=== PATIENT | female | born 1940 | race Caucasian/White ===

== ENCOUNTER → 2016-06-04 | Outpatient (CLI) | payer MEDICARE, OTHER ==
[~2016-06-04] MED LIST: ALPR-475 PO; CIPR250T27 PO; CLOP75TA22 PO; DEXL30CA2 PO; DIGO125T PO; HYDR10TA4 PO; LORA-446 PO; OMEP-110 PO; PHEN-418 PO; TEMA15CA6 PO; THYR90TA PO; TRAZ50TA18 PO
== END | disposition home or self-care (01) ==
LOC: CFH 10:44
PROVIDERS: ATTEND Internal Medicine
DX: J44.9 Chronic obstructive pulmonary disease, unspecified (principal); R91.8 Other nonspecific abnormal finding of lung field
CPT/HCPCS: 71250

== ENCOUNTER 2016-06-13 12:20 | Inpatient (IN) | payer MEDICARE, OTHER ==
[2016-06-12 10:51] VITALS: BP 146/66
[~2016-06-13] VITALS: Ht 147.3 cm; Wt 45.5 kg
[~2016-06-13 12:20] MED LIST changes: +ALBU90AE PO; +CALCIUM PO; +ESTRADIOL PO; +PROZAC PO; +RESTORIL PO
[2016-06-13] MEDS ORDERED: FENTANYL PF 100 MCG/2ML ONE ×3 (13:35→16:55)
[2016-06-13] MEDS ORDERED: NEOSTIGMINE 1 MG/ML, 10ML ONE (13:44)
[2016-06-13] MEDS ORDERED: ONDANSETRON 2MG/ML, 2ML ONE (13:44)
[2016-06-13] MEDS ORDERED: GLYCOPYRROLATE 0.2MG/1ML ONE (13:44)
[2016-06-13] MEDS ORDERED: ROCURONIUM 10 MG/ML ONE ×2 (13:44)
[2016-06-13] MEDS ORDERED: METOPROLOL 1 MG/ML, 5ML ONE (13:44)
[2016-06-13] MEDS ORDERED: PROPOFOL 10 MG/ML, 20ML ONE ×2 (13:44)
[2016-06-13] MEDS ORDERED: METOPROLOL 1 MG/ML, 5ML IV PRN (14:30)
[2016-06-13] MEDS ORDERED: MEPERIDINE/PF 25MG/0.5ML IVPush PRN (14:30)
[2016-06-13] MEDS ORDERED: EPHEDRINE 50 MG/ML, 1ML IVPush PRN (14:30)
[2016-06-13] MEDS ORDERED: hydrALAzine 20 MG/ML, 1ML IV PRN (14:30)
[2016-06-13] MEDS ORDERED: LABETALOL 5MG/ML, 20ML IV PRN (14:30)
[2016-06-13] MEDS ORDERED: ALBUTEROL SULFATE 2.5 MG/3 ML NPPB PRN (14:30)
[2016-06-13] MEDS ORDERED: ONDANSETRON 2MG/ML, 2ML IVPush PRN (14:30)
[2016-06-13] MEDS ORDERED: LACTATED RINGERS 1,000 ML IV SCH (15:50)
[2016-06-13] MEDS: FENTANYL PF 100 MCG/2ML IV PRN ×4 (15:54→16:23)
[2016-06-13] MEDS ORDERED: BISACODYL 10 MG SUPP PR PRN (16:00)
[2016-06-13] MEDS ORDERED: POLYETHYLENE GLYCOL 17 GM PACKET PO PRN (16:00)
[2016-06-13] MEDS ORDERED: DOCUSATE 100 MG CAPSULE PO PRN (16:00)
[2016-06-13] MEDS ORDERED: LIDOCAINE 1%, 20ML ONE (16:40)
[2016-06-13] MEDS ORDERED: NALOXONE 1 MG/ML, 2ML ONE (16:55)
[2016-06-13] MEDS ORDERED: FLUMAZENIL 0.1 MG/1 ML, 5ML ONE (16:55)
[2016-06-13] MEDS ORDERED: MIDAZOLAM 1 MG/ML, 5ML ONE (16:55)
[2016-06-13] MEDS: OMEPRAZOLE 20 MG CAPSULE.DR PO SCH (17:00)
[2016-06-13] MEDS ORDERED: ENOXAPARIN 40 MG/0.4 ML SQ SCH (17:00)
[2016-06-13 17:51] VITALS: BP 86/54
[2016-06-13] MEDS: FENTANYL PF 100 MCG/2ML IVPush PRN (19:34)
[2016-06-13] MEDS ORDERED: ATORVASTATIN 40 MG TABLET PO SCH (21:00)
[2016-06-13 21:19] VITALS: BP 117/54
[2016-06-13] MEDS ORDERED: calcium PO (22:29)
[2016-06-13] MEDS ORDERED: PRED50TA PO (22:29)
[2016-06-13] MEDS ORDERED: MAGN2400 PO (22:29)
[2016-06-13] MEDS ORDERED: DOCU-30 PO (22:29)
[2016-06-13] MEDS ORDERED: GABA100C8 PO (22:29)
[2016-06-13] MEDS ORDERED: FLUT9.9S NS (22:29)
[2016-06-13] MEDS ORDERED: atarax PO (22:29)
[2016-06-13] MEDS ORDERED: LORA-446 PO (22:29)
[2016-06-13] MEDS ORDERED: MAGNESIUM HYDROXIDE 8%, 30ML UDC PO PRN (23:00)
[2016-06-13] MEDS ORDERED: TRAZODONE 100MG TABLET PO PRN (23:45)
[2016-06-13] MEDS: ALPRazolam 1MG TABLET PO SCH (23:56)
[2016-06-14] VITALS (7 sets, daily range): BP systolic 79–120; BP diastolic 43–64
[2016-06-14] MEDS: hydrOXyzine 10MG TABLET PO PRN ×2 (00:26→11:44)
[2016-06-14] MEDS: FENTANYL PF 100 MCG/2ML IVPush PRN ×4 (01:40→18:22)
[2016-06-14 05:50] LABS: BLOOD UREA NITROGEN 16 mg/dL (7-18)
[2016-06-14] MEDS: THYROID 30 MG TABLET PO SCH (05:50)
[2016-06-14] MEDS: FLUOXETINE 20 MG CAPSULE PO SCH (07:29)
[2016-06-14] MEDS: predniSONE 50MG TABLET PO SCH (07:29)
[2016-06-14] MEDS ORDERED: DIGOXIN 0.125 MG TABLET PO SCH (09:00)
[2016-06-14] MEDS: CALCIUM CARBONATE 500 MG TAB.CHEW PO SCH (09:27)
[2016-06-14] MEDS: FLUTICASONE NASAL SPRAY 16GM NAS SCH (09:27)
[2016-06-14] MEDS ORDERED: SODIUM CHLORIDE 0.9%, 500ML IVBOLUS ONE (14:00)
[2016-06-14] MEDS ORDERED: SODIUM CHLORIDE 0.9% 1,000 ML IV SCH (14:00)
[2016-06-14] MEDS: OMEPRAZOLE 20 MG CAPSULE.DR PO SCH (17:45)
[2016-06-14] MEDS ORDERED: ENOXAPARIN 30 MG/0.3 ML SQ SCH (18:00)
[2016-06-14] MEDS: ALPRazolam 1MG TABLET PO SCH (21:00)
[2016-06-14] MEDS: ENOXAPARIN 30 MG/0.3 ML SQ SCH (21:00)
[2016-06-15] VITALS (7 sets, daily range): BP systolic 87–117; BP diastolic 43–66
[2016-06-15] MEDS: THYROID 30 MG TABLET PO SCH (05:45)
[2016-06-15] MEDS: FLUTICASONE NASAL SPRAY 16GM NAS SCH (08:42)
[2016-06-15] MEDS: predniSONE 50MG TABLET PO SCH (08:42)
[2016-06-15] MEDS: CALCIUM CARBONATE 500 MG TAB.CHEW PO SCH (08:42)
[2016-06-15] MEDS: FLUOXETINE 20 MG CAPSULE PO SCH (08:42)
[2016-06-15] MEDS: FENTANYL PF 100 MCG/2ML IVPush PRN ×2 (08:43→21:25)
[2016-06-15] MEDS ORDERED: LORazepam 2 MG/ML, 1ML ONE (10:42)
[2016-06-15] MEDS ORDERED: LORazepam 2 MG/ML, 1ML IVPush ONE (11:00)
[2016-06-15] MEDS ORDERED: MIDAZOLAM 1 MG/ML, 5ML ONE (14:07)
[2016-06-15] MEDS ORDERED: FENTANYL PF 100 MCG/2ML ONE (14:08)
[2016-06-15] MEDS ORDERED: LIDOCAINE 2%, 20ML ONE (14:22)
[2016-06-15] MEDS: OMEPRAZOLE 20 MG CAPSULE.DR PO SCH (16:40)
[2016-06-15] MEDS: ENOXAPARIN 30 MG/0.3 ML SQ SCH (20:15)
[2016-06-15] MEDS: ALPRazolam 1MG TABLET PO SCH (21:00)
[2016-06-16 03:35] VITALS: BP 105/51
[2016-06-16] MEDS: THYROID 30 MG TABLET PO SCH (06:32)
[2016-06-16 06:49] VITALS: BP 112/50
[2016-06-16] MEDS: FLUTICASONE NASAL SPRAY 16GM NAS SCH (08:20)
[2016-06-16] MEDS: predniSONE 50MG TABLET PO SCH (08:20)
[2016-06-16] MEDS: FLUOXETINE 20 MG CAPSULE PO SCH (08:20)
[2016-06-16] MEDS: CALCIUM CARBONATE 500 MG TAB.CHEW PO SCH (08:20)
[2016-06-16] MEDS: ESTRADIOL 1 MG TABLET PO SCH (08:20)
[2016-06-16] MEDS: FENTANYL PF 100 MCG/2ML IVPush PRN ×3 (08:27→20:02)
[2016-06-16 14:24] VITALS: BP 96/48
[2016-06-16] MEDS: OMEPRAZOLE 20 MG CAPSULE.DR PO SCH (17:15)
[2016-06-16] MEDS: ENOXAPARIN 40 MG/0.4 ML SQ SCH (20:02)
[2016-06-16 20:04] VITALS: BP 110/49
[2016-06-16] MEDS: ALPRazolam 1MG TABLET PO SCH (21:00)
[2016-06-17 01:56] VITALS: BP 110/51
[2016-06-17] MEDS: THYROID 30 MG TABLET PO SCH (05:46)
[2016-06-17] MEDS: FENTANYL PF 100 MCG/2ML IVPush PRN ×2 (05:46→09:42)
[2016-06-17 06:34] VITALS: BP 127/59
[2016-06-17] MEDS: ESTRADIOL 1 MG TABLET PO SCH (09:35)
[2016-06-17] MEDS: FLUTICASONE NASAL SPRAY 16GM NAS SCH (09:36)
[2016-06-17] MEDS: FLUOXETINE 20 MG CAPSULE PO SCH (09:36)
[2016-06-17] MEDS: CALCIUM CARBONATE 500 MG TAB.CHEW PO SCH (09:42)
[2016-06-17 14:21] VITALS: BP 118/46
[2016-06-17] MEDS: OMEPRAZOLE 20 MG CAPSULE.DR PO SCH (17:42)
[2016-06-17] MEDS ORDERED: ACETAMINOPHEN 325 MG TABLET ONE (19:43)
[2016-06-17] MEDS: ALPRazolam 1MG TABLET PO SCH ×2 (19:46→21:00)
[2016-06-17] MEDS: ACETAMINOPHEN 325 MG TABLET PO PRN (19:46)
[2016-06-17] MEDS: ENOXAPARIN 40 MG/0.4 ML SQ SCH (19:47)
[2016-06-17 20:00] VITALS: BP 185/62
[2016-06-18 03:19] VITALS: BP 102/54
[2016-06-18] MEDS: THYROID 30 MG TABLET PO SCH (05:33)
[2016-06-18] MEDS: ACETAMINOPHEN 325 MG TABLET PO PRN (05:36)
[2016-06-18 07:56] VITALS: BP 123/58
[2016-06-18] MEDS: CALCIUM CARBONATE 500 MG TAB.CHEW PO SCH ×2 (08:21→21:30)
[2016-06-18] MEDS: ESTRADIOL 1 MG TABLET PO SCH (08:21)
[2016-06-18] MEDS: FLUTICASONE NASAL SPRAY 16GM NAS SCH (08:21)
[2016-06-18] MEDS: FLUOXETINE 20 MG CAPSULE PO SCH (08:21)
[2016-06-18] MEDS: GABAPENTIN 300 MG CAPSULE PO PRN (08:32)
[2016-06-18 13:00] VITALS: BP 114/56
[2016-06-18 14:35] VITALS: BP 112/47
[2016-06-18] MEDS: OMEPRAZOLE 20 MG CAPSULE.DR PO SCH (17:00)
[2016-06-18] MEDS ORDERED: FENTANYL PF 250 MCG/5ML ONE (17:24)
[2016-06-18] MEDS ORDERED: BUPIVACAINE/PF-EPI 0.25% 1:200K ONE (17:43)
[2016-06-18] MEDS ORDERED: ONDANSETRON 2MG/ML, 2ML ONE ×2 (18:00→18:59)
[2016-06-18] MEDS ORDERED: PROPOFOL 10 MG/ML, 20ML ONE (18:00)
[2016-06-18] MEDS ORDERED: ROCURONIUM 10 MG/ML ONE (18:00)
[2016-06-18] MEDS ORDERED: CEFAZOLIN 1,000 MG ONE (18:00)
[2016-06-18] MEDS ORDERED: ALBUTEROL/IPRATROPIUM 2.5MG/0.5MG, 3 ML NPPB PRN (19:00)
[2016-06-18] MEDS ORDERED: FENTANYL PF 100 MCG/2ML IV PRN (19:00)
[2016-06-18] MEDS ORDERED: hydrALAzine 20 MG/ML, 1ML IV PRN (19:00)
[2016-06-18] MEDS ORDERED: LABETALOL 5MG/ML, 20ML IV PRN (19:00)
[2016-06-18] MEDS ORDERED: ONDANSETRON 2MG/ML, 2ML IVPush PRN (19:00)
[2016-06-18] MEDS ORDERED: FENTANYL PF 100 MCG/2ML ONE (19:19)
[2016-06-18] MEDS: FENTANYL PF 100 MCG/2ML IVPush PRN (20:49)
[2016-06-18] MEDS: ALPRazolam 1MG TABLET PO SCH (21:00)
[2016-06-18] MEDS: ENOXAPARIN 40 MG/0.4 ML SQ SCH (21:54)
[2016-06-18 23:54] VITALS: BP 156/69
[2016-06-19] MEDS: ACETAMINOPHEN 325 MG TABLET PO PRN ×2 (00:11→08:38)
[2016-06-19] MEDS: FENTANYL PF 100 MCG/2ML IVPush PRN ×6 (00:55→17:58)
[2016-06-19 03:40] VITALS: BP 109/54
[2016-06-19] MEDS: THYROID 30 MG TABLET PO SCH (05:37)
[2016-06-19 07:06] VITALS: BP 116/52
[2016-06-19] MEDS: FLUOXETINE 20 MG CAPSULE PO SCH (08:38)
[2016-06-19] MEDS: FLUTICASONE NASAL SPRAY 16GM NAS SCH (08:38)
[2016-06-19] MEDS: ESTRADIOL 1 MG TABLET PO SCH (08:38)
[2016-06-19] MEDS: CALCIUM CARBONATE 500 MG TAB.CHEW PO SCH (08:41)
[2016-06-19] MEDS: GABAPENTIN 300 MG CAPSULE PO PRN ×2 (09:41→17:58)
[2016-06-19 12:35] VITALS: BP 90/48
[2016-06-19] MEDS: OMEPRAZOLE 20 MG CAPSULE.DR PO SCH (13:44)
[2016-06-19] MEDS: SIMETHICONE 80 MG CHEW TAB PO PRN ×2 (14:20→18:31)
[2016-06-19 18:28] VITALS: BP 88/54
[2016-06-19] MEDS: ENOXAPARIN 40 MG/0.4 ML SQ SCH (20:38)
[2016-06-19] MEDS: ALPRazolam 1MG TABLET PO SCH (20:38)
[2016-06-19 23:30] VITALS: BP 110/48
[2016-06-20 02:01] VITALS: BP 90/51
[2016-06-20] MEDS: FENTANYL PF 100 MCG/2ML IVPush PRN ×4 (05:23→20:37)
[2016-06-20] MEDS: THYROID 30 MG TABLET PO SCH (05:23)
[2016-06-20] MEDS: GABAPENTIN 300 MG CAPSULE PO PRN ×2 (05:23→22:08)
[2016-06-20 07:23] VITALS: BP 93/47
[2016-06-20] MEDS: FLUOXETINE 20 MG CAPSULE PO SCH (10:04)
[2016-06-20] MEDS: ESTRADIOL 1 MG TABLET PO SCH (10:04)
[2016-06-20] MEDS: CALCIUM CARBONATE 500 MG TAB.CHEW PO SCH (10:04)
[2016-06-20] MEDS: FLUTICASONE NASAL SPRAY 16GM NAS SCH (10:05)
[2016-06-20] MEDS: SIMETHICONE 80 MG CHEW TAB PO PRN (10:21)
[2016-06-20 13:27] VITALS: BP 85/48
[2016-06-20] MEDS: OMEPRAZOLE 20 MG CAPSULE.DR PO SCH (15:55)
[2016-06-20] MEDS: ACETAMINOPHEN 325 MG TABLET PO PRN (15:56)
[2016-06-20 18:51] VITALS: BP 129/61
[2016-06-20 20:35] VITALS: BP 114/49
[2016-06-20] MEDS: ENOXAPARIN 40 MG/0.4 ML SQ SCH (20:37)
[2016-06-20] MEDS: ALPRazolam 1MG TABLET PO SCH (22:07)
[2016-06-21 01:34] VITALS: BP 97/36
[2016-06-21 03:45] VITALS: BP 95/45
[2016-06-21 05:43] VITALS: BP 112/49
[2016-06-21] MEDS: FENTANYL PF 100 MCG/2ML IVPush PRN (05:49)
[2016-06-21] MEDS: ACETAMINOPHEN 325 MG TABLET PO PRN (05:50)
[2016-06-21] MEDS: THYROID 30 MG TABLET PO SCH (05:50)
[2016-06-21] MEDS ORDERED: ESTR1TAB15 PO (07:48)
[2016-06-21] MEDS ORDERED: FLUT16SP NAS (07:48)
[2016-06-21] MEDS ORDERED: ALPR1TAB6 PO (07:48)
[2016-06-21] MEDS ORDERED: FLUO20CA8 PO (07:48)
[2016-06-21] MEDS ORDERED: GABA300C10 PO (07:48)
[2016-06-21] MEDS ORDERED: THYR30TA PO (07:48)
[2016-06-21 08:33] VITALS: BP 74/33
[2016-06-21] MEDS: ESTRADIOL 1 MG TABLET PO SCH (08:42)
[2016-06-21] MEDS: SIMETHICONE 80 MG CHEW TAB PO PRN (08:42)
[2016-06-21] MEDS: FLUTICASONE NASAL SPRAY 16GM NAS SCH (08:43)
[2016-06-21] MEDS: CALCIUM CARBONATE 500 MG TAB.CHEW PO SCH (08:43)
[2016-06-21] MEDS ORDERED: FENT-58 TD (09:30)
[2016-06-21] MEDS ORDERED: FENTANYL 12 MCG PATCH TD SCH ×2 (09:30→12:00)
[2016-06-21] MEDS ORDERED: FENT1PAT75 TD (09:33)
[2016-06-21] MEDS ORDERED: FENTANYL 25 MCG PATCH TD SCH (11:30)
[2016-06-21] MEDS ORDERED: FENTANYL REMOVE PATCH NOTE XX SCH (11:30)
[2016-06-21 13:20] VITALS: BP 80/44
[2016-06-24] MEDS ORDERED: FENTANYL 12 MCG PATCH TD SCH (11:30)
[2016-06-24] MEDS ORDERED: FENTANYL REMOVE PATCH NOTE XX SCH (11:30)
== END 2016-06-21 13:35 | disposition home or self-care (01) | DRG 166 ==
LOC: OUT 12:20 → MERGE 13:30 → ORIP 15:50 → 4NOR 17:22
PROVIDERS: ADMIT Internal Medicine; ATTEND Internal Medicine
PROC: 0W9930Z Drainage of Right Pleural Cavity with Drainage Device, Percutaneous Approach (ICD-10-PCS; 2016-06-13)
PROC: 0B9D8ZX Drainage of Right Middle Lung Lobe, Via Natural or Artificial Opening Endoscopic, Diagnostic (ICD-10-PCS; 2016-06-13)
PROC: 0BBD8ZZ Excision of Right Middle Lung Lobe, Via Natural or Artificial Opening Endoscopic (ICD-10-PCS; 2016-06-13)
PROC: 0W28X0Z Change Drainage Device in Chest Wall, External Approach (ICD-10-PCS; 2016-06-15)
PROC: 0BBD4ZX Excision of Right Middle Lung Lobe, Percutaneous Endoscopic Approach, Diagnostic (ICD-10-PCS; principal; 2016-06-18 16:00)
DX: J95.811 Postprocedural pneumothorax (principal); J86.0 Pyothorax with fistula; J96.90 Respiratory failure, unspecified, unspecified whether with hypoxia or hypercapnia; C34.2 Malignant neoplasm of middle lobe, bronchus or lung; R91.8 Other nonspecific abnormal finding of lung field; E03.9 Hypothyroidism, unspecified; G47.33 Obstructive sleep apnea (adult) (pediatric); E78.5 Hyperlipidemia, unspecified; I10 Essential (primary) hypertension; I25.10 Atherosclerotic heart disease of native coronary artery without angina pectoris; I71.4 Abdominal aortic aneurysm, without rupture; R91.1 Solitary pulmonary nodule; I73.9 Peripheral vascular disease, unspecified; Z82.49 Family history of ischemic heart disease and other diseases of the circulatory system; Z86.79 Personal history of other diseases of the circulatory system; Z87.891 Personal history of nicotine dependence; Z88.9 Allergy status to unspecified drugs, medicaments and biological substances; Z99.81 Dependence on supplemental oxygen; I65.29 Occlusion and stenosis of unspecified carotid artery; I71.9 Aortic aneurysm of unspecified site, without rupture; J44.9 Chronic obstructive pulmonary disease, unspecified
CPT/HCPCS: 31624; 31628; 32557; 36415; 71010; 75984; 76001; 80048; 81003; 85025; 88172; 88173; 88177; 88305; 88309; 88341; 88342; 93005; 94640; 99156; 99157; C1729; J0690; J1650; J2250; J2405; J2704; J2710; J3010; J3490; J7613; C1769; G0461; J2060; J2310; J7030; J7040; J7120; J7512

== ENCOUNTER → 2016-06-24 | Outpatient (CLI) | payer MEDICARE, OTHER ==
[~2016-06-24] MED LIST changes: +ALPR1TAB6 PO; +DEXL60CA PO; +DOCU-30 PO; +ESTR1TAB15 PO; +FENT-58 TD; +FENT1PAT75 TD; +FLUO20CA8 PO; +FLUT16SP NAS; +FLUT9.9S NS; +GABA100C8 PO; +GABA300C10 PO; +HYDR25CA PO; +MAGN2400 PO; +PRED50TA PO; +THYR30TA PO; +atarax PO; +calcium PO
== END | disposition home or self-care (01) ==
LOC: RAD 14:30
PROVIDERS: ATTEND Internal Medicine
DX: R05 Cough (principal); R07.9 Chest pain, unspecified; R91.8 Other nonspecific abnormal finding of lung field; T79.7XXA Traumatic subcutaneous emphysema, initial encounter
CPT/HCPCS: 71020

== ENCOUNTER 2016-06-26 10:30 | Inpatient (IN) | payer MEDICARE, OTHER ==
[~2016-06-26] VITALS: Ht 147.3 cm; Wt 36.8 kg
[~2016-06-26 10:30] MED LIST changes: -DEXL60CA PO; -HYDR25CA PO
[2016-06-26] MEDS ORDERED: SODIUM CHLORIDE 0.9% 1,000 ML IV ONE (10:46)
[2016-06-26] MEDS ORDERED: DIGO125T PO (10:51)
[2016-06-26] MEDS ORDERED: HYDR25CA PO (10:51)
[2016-06-26] MEDS ORDERED: DEXL60CA PO (10:51)
[2016-06-26] MEDS ORDERED: CEFTRIAXONE PMX 1GM/50ML 50 ML IVPB ONE (11:00)
[2016-06-26] MEDS ORDERED: SODIUM CHLORIDE FLUSH 10ML SYR IVF ONE (11:00)
[2016-06-26] MEDS ORDERED: AZITHROMYCIN 500 MG in SODIUM CHLORIDE 0.9% 250 ML IVPB ONE (11:00)
[2016-06-26] MEDS ORDERED: CEFTRIAXONE PMX 1GM/50ML 50 ML ONE (11:05)
[2016-06-26 11:47] LABS: ABG COLLECTION SITE RIGHT BRACHIAL
[2016-06-26 12:04] LABS: ASPARTATE AMINO TRANSFERASE 20 U/L (15-37); BLOOD UREA NITROGEN 13 mg/dL (7-18)
[2016-06-26 12:09] LABS: IS PT STATUS REG ER OR PRE ER? YES
[2016-06-26] MEDS ORDERED: SODIUM CHLORIDE FLUSH 10ML SYR IVF PRN (13:00)
[2016-06-26] MEDS ORDERED: DOCUSATE 100 MG CAPSULE PO PRN (14:00)
[2016-06-26] MEDS ORDERED: POLYETHYLENE GLYCOL 17 GM PACKET PO PRN (14:00)
[2016-06-26] MEDS ORDERED: OXYcodone IR 5MG TABLET PO PRN (14:00)
[2016-06-26] MEDS ORDERED: SODIUM CHLORIDE 0.9% 1,000ML IVBOLUS ONE (14:00)
[2016-06-26] MEDS ORDERED: ACETAMINOPHEN 325 MG TABLET PO PRN (14:00)
[2016-06-26] MEDS ORDERED: VANCOMYCIN PER PHARMACY MC PRN (14:30)
[2016-06-26] MEDS ORDERED: FUROSEMIDE 20 MG/2 ML IV ONE (14:30)
[2016-06-26] MEDS ORDERED: VANCOMYCIN PMX 1GM/200ML 200 ML IV ONE (14:30)
[2016-06-26 14:49] VITALS: BP 104/68
[2016-06-26] MEDS ORDERED: PHARMACOKINETIC CONSULTATION MC ONE (15:30)
[2016-06-26] MEDS ORDERED: PHARMACOKINETIC MONITORING MC PRN (15:30)
[2016-06-26] MEDS ORDERED: VANCOMYCIN 750 MG in SODIUM CHLORIDE 0.9% 100 ML IV ONE (15:30)
[2016-06-26] MEDS ORDERED: VANCOMYCIN 750 MG in SODIUM CHLORIDE 0.9% 100 ML IV SCH (15:30)
[2016-06-26] MEDS: GUAIFENESIN 200 MG TABLET PO SCH (16:43)
[2016-06-26] MEDS: PIPERACILLIN/TAZO 3.375 GM in SODIUM CHLORIDE 0.9% 50 ML IV SCH ×2 (16:43→22:49)
[2016-06-26] MEDS: IBUPROFEN 200 MG TABLET PO PRN ×2 (16:43→22:50)
[2016-06-26] MEDS: HEPARIN 5,000 UNITS/ML, 1ML SQ SCH ×2 (16:45→22:49)
[2016-06-26] MEDS: FLUTICASONE/VILANTEROL 200-25MCG/INH INH SCH (16:45)
[2016-06-26] MEDS: VANCOMYCIN 750 MG in SODIUM CHLORIDE 0.9% 100 ML IV SCH (17:35)
[2016-06-26 19:25] VITALS: BP 93/53
[2016-06-26] MEDS: IPRATROPIUM 0.5 MG/2.5 ML INHA NPPB SCH (19:33)
[2016-06-26 19:37] VITALS: BP_SYST 141; BP_SYST 93; BP_DIAS 53; BP_DIAS 76
[2016-06-26] MEDS: ALPRazolam 1MG TABLET PO SCH (20:32)
[2016-06-26] MEDS: CALCIUM CARBONATE 500 MG TABLET PO SCH (20:33)
[2016-06-26] MEDS: MAGNESIUM OXIDE 400 MG TABLET PO SCH (20:33)
[2016-06-27 02:12] VITALS: BP 118/65
[2016-06-27] MEDS: GUAIFENESIN 200 MG TABLET PO SCH ×2 (04:13→17:09)
[2016-06-27] MEDS: CALCIUM CARBONATE 500 MG TAB.CHEW PO PRN (04:52)
[2016-06-27] MEDS: PIPERACILLIN/TAZO 3.375 GM in SODIUM CHLORIDE 0.9% 50 ML IV SCH ×3 (04:52→17:08)
[2016-06-27] MEDS: THYROID 30 MG TABLET PO SCH (05:49)
[2016-06-27] MEDS: HEPARIN 5,000 UNITS/ML, 1ML SQ SCH ×3 (05:50→23:19)
[2016-06-27 06:08] LABS: ASPARTATE AMINO TRANSFERASE 27 U/L (15-37); BLOOD UREA NITROGEN 12 mg/dL (7-18)
[2016-06-27] MEDS: ONDANSETRON 2MG/ML, 2ML IVPush PRN ×2 (06:21→19:31)
[2016-06-27] MEDS: IPRATROPIUM 0.5 MG/2.5 ML INHA NPPB SCH ×4 (06:56→19:29)
[2016-06-27 07:05] VITALS: BP 128/78
[2016-06-27] MEDS: IBUPROFEN 200 MG TABLET PO PRN ×2 (08:09→13:29)
[2016-06-27] MEDS: FLUTICASONE/VILANTEROL 200-25MCG/INH INH SCH (08:10)
[2016-06-27] MEDS: MAGNESIUM OXIDE 400 MG TABLET PO SCH (08:10)
[2016-06-27] MEDS: FLUOXETINE 20 MG CAPSULE PO SCH (08:10)
[2016-06-27] MEDS: DIGOXIN 0.125 MG TABLET PO SCH (08:10)
[2016-06-27] MEDS: CALCIUM CARBONATE 500 MG TABLET PO SCH (08:10)
[2016-06-27] MEDS: FLUTICASONE NASAL SPRAY 16GM NAS SCH (08:12)
[2016-06-27] MEDS: SENNA/DOCUSATE TABLET PO SCH (08:14)
[2016-06-27] MEDS ORDERED: DEXLANSOPRAZOLE 60 MG PO SCH (09:00)
[2016-06-27 12:55] VITALS: BP 114/55
[2016-06-27] MEDS: VANCOMYCIN 750 MG in SODIUM CHLORIDE 0.9% 100 ML IV SCH (15:39)
[2016-06-27] MEDS: methylPREDNISolone SOD SUCC 125 MG/2 ML IVPush SCH ×2 (17:34→23:19)
[2016-06-27 19:07] VITALS: BP 147/64
[2016-06-27] MEDS: ALPRazolam 1MG TABLET PO SCH (21:00)
[2016-06-27] MEDS: LACTOBACILLUS CHEW TABLET PO SCH (21:00)
[2016-06-27] MEDS ORDERED: LORazepam 2 MG/ML, 1ML IVPush ONE (22:30)
[2016-06-27] MEDS: PIPERACILLIN/TAZO 3.375 GM in SODIUM CHLORIDE 0.9% 100 ML IV SCH (23:20)
[2016-06-28 04:13] VITALS: BP 115/42
[2016-06-28] MEDS: ONDANSETRON 2MG/ML, 2ML IVPush PRN (04:14)
[2016-06-28] MEDS: methylPREDNISolone SOD SUCC 125 MG/2 ML IVPush SCH ×4 (05:12→20:18)
[2016-06-28] MEDS: PIPERACILLIN/TAZO 3.375 GM in SODIUM CHLORIDE 0.9% 100 ML IV SCH ×2 (05:12→11:12)
[2016-06-28] MEDS: GUAIFENESIN 200 MG TABLET PO SCH ×2 (05:13→17:30)
[2016-06-28] MEDS: HEPARIN 5,000 UNITS/ML, 1ML SQ SCH ×3 (05:13→20:18)
[2016-06-28] MEDS: THYROID 30 MG TABLET PO SCH (05:14)
[2016-06-28 05:55] LABS: BLOOD UREA NITROGEN 14 mg/dL (7-18)
[2016-06-28 06:35] VITALS: BP 91/56
[2016-06-28] MEDS: IPRATROPIUM 0.5 MG/2.5 ML INHA NPPB SCH ×4 (06:45→19:47)
[2016-06-28] MEDS: OMEPRAZOLE 20 MG CAPSULE.DR PO SCH (08:04)
[2016-06-28] MEDS: FLUTICASONE/VILANTEROL 200-25MCG/INH INH SCH (08:05)
[2016-06-28] MEDS: CALCIUM CARBONATE 500 MG TABLET PO SCH (08:05)
[2016-06-28] MEDS: MAGNESIUM OXIDE 400 MG TABLET PO SCH (08:05)
[2016-06-28] MEDS: FLUOXETINE 20 MG CAPSULE PO SCH (08:05)
[2016-06-28] MEDS: DIGOXIN 0.125 MG TABLET PO SCH (08:05)
[2016-06-28] MEDS: LACTOBACILLUS CHEW TABLET PO SCH ×3 (08:05→20:17)
[2016-06-28] MEDS: SENNA/DOCUSATE TABLET PO SCH (08:06)
[2016-06-28] MEDS: FLUTICASONE NASAL SPRAY 16GM NAS SCH (08:06)
[2016-06-28] MEDS ORDERED: LORazepam 2 MG/ML, 1ML IVPush PRN (10:30)
[2016-06-28 10:58] VITALS: BP 89/49
[2016-06-28 11:00] LABS: ABG COLLECTION SITE RIGHT RADIAL; COLLATERAL CIRCULATION TESTING NORMAL
[2016-06-28] MEDS ORDERED: maalox/diphenh/lido/sucralfate 5 ML PO PRN (11:00)
[2016-06-28] MEDS ORDERED: FLUCONAZOLE 200 MG/100 ML 100 ML IV ONE (11:00)
[2016-06-28 13:09] VITALS: BP 105/64
[2016-06-28] MEDS: maalox/diphenh/lido/sucralfate 5 ML PO PRN (14:56)
[2016-06-28] MEDS: VANCOMYCIN 750 MG in SODIUM CHLORIDE 0.9% 100 ML IV SCH (14:56)
[2016-06-28] MEDS: PIPERACILLIN/TAZO 2.25 GM in SODIUM CHLORIDE 0.9% 50 ML IV SCH ×2 (17:42→23:09)
[2016-06-28 19:02] VITALS: BP 152/62
[2016-06-28 20:42] VITALS: BP 129/73
[2016-06-28] MEDS: IBUPROFEN 200 MG TABLET PO PRN (21:10)
[2016-06-28] MEDS: CALCIUM CARBONATE 500 MG TAB.CHEW PO PRN (21:10)
[2016-06-29 00:56] VITALS: BP 149/61
[2016-06-29] MEDS: IBUPROFEN 200 MG TABLET PO PRN ×2 (02:23→16:33)
[2016-06-29] MEDS: maalox/diphenh/lido/sucralfate 5 ML PO PRN (02:24)
[2016-06-29 03:53] LABS: BLOOD UREA NITROGEN 17 mg/dL (7-18)
[2016-06-29] MEDS: PIPERACILLIN/TAZO 2.25 GM in SODIUM CHLORIDE 0.9% 50 ML IV SCH ×4 (05:09→23:03)
[2016-06-29] MEDS: GUAIFENESIN 200 MG TABLET PO SCH ×2 (05:10→16:35)
[2016-06-29] MEDS: methylPREDNISolone SOD SUCC 125 MG/2 ML IVPush SCH ×4 (05:10→23:03)
[2016-06-29] MEDS: HEPARIN 5,000 UNITS/ML, 1ML SQ SCH ×3 (05:11→23:02)
[2016-06-29] MEDS: THYROID 30 MG TABLET PO SCH (05:11)
[2016-06-29] MEDS: IPRATROPIUM 0.5 MG/2.5 ML INHA NPPB SCH ×4 (07:30→19:20)
[2016-06-29 07:39] VITALS: BP 145/37
[2016-06-29] MEDS: FLUTICASONE NASAL SPRAY 16GM NAS SCH (09:00)
[2016-06-29] MEDS: FLUOXETINE 20 MG CAPSULE PO SCH (09:24)
[2016-06-29] MEDS: LACTOBACILLUS CHEW TABLET PO SCH ×3 (09:24→20:15)
[2016-06-29] MEDS: MAGNESIUM OXIDE 400 MG TABLET PO SCH (09:25)
[2016-06-29] MEDS: DIGOXIN 0.125 MG TABLET PO SCH (09:26)
[2016-06-29] MEDS: CALCIUM CARBONATE 500 MG TABLET PO SCH (09:27)
[2016-06-29] MEDS: OMEPRAZOLE 20 MG CAPSULE.DR PO SCH (09:27)
[2016-06-29] MEDS: SENNA/DOCUSATE TABLET PO SCH (09:27)
[2016-06-29] MEDS: FLUTICASONE/VILANTEROL 200-25MCG/INH INH SCH (09:28)
[2016-06-29 09:29] VITALS: BP 149/61
[2016-06-29] MEDS ORDERED: LORazepam 2 MG/ML, 1ML IVPush ONE (12:00)
[2016-06-29 12:32] LABS: ABG COLLECTION SITE LEFT BRACHIAL
[2016-06-29] MEDS ORDERED: FUROSEMIDE 20 MG/2 ML IV ONE (13:00)
[2016-06-29 13:37] VITALS: BP 147/63
[2016-06-29] MEDS: VANCOMYCIN 750 MG in SODIUM CHLORIDE 0.9% 100 ML IV SCH (15:35)
[2016-06-29] MEDS ORDERED: ALBUMIN HUMAN 25% 100 ML IV SCH (16:30)
[2016-06-29 18:38] VITALS: BP 179/76
[2016-06-29] MEDS: GUAIFENESIN ER 600 MG TABLET PO SCH (20:15)
[2016-06-29] MEDS: FUROSEMIDE 20 MG/2 ML IV SCH (21:00)
[2016-06-29] MEDS: LORazepam 2 MG/ML, 1ML IVPush PRN (22:21)
[2016-06-29] MEDS ORDERED: DIPHENHYDRAMINE 50 MG/ML, 1ML IVPush ONE (23:00)
[2016-06-30 00:27] VITALS: BP 184/68
[2016-06-30] MEDS: methylPREDNISolone SOD SUCC 125 MG/2 ML IVPush SCH ×3 (05:08→17:12)
[2016-06-30] MEDS: THYROID 30 MG TABLET PO SCH (05:09)
[2016-06-30] MEDS: GUAIFENESIN 200 MG TABLET PO SCH ×3 (05:10→17:01)
[2016-06-30] MEDS: PIPERACILLIN/TAZO 2.25 GM in SODIUM CHLORIDE 0.9% 50 ML IV SCH ×3 (05:10→17:10)
[2016-06-30] MEDS: IPRATROPIUM 0.5 MG/2.5 ML INHA NPPB SCH ×4 (06:30→20:00)
[2016-06-30 06:39] LABS: BLOOD UREA NITROGEN 18 mg/dL (7-18)
[2016-06-30] MEDS: OMEPRAZOLE 20 MG CAPSULE.DR PO SCH (07:37)
[2016-06-30] MEDS: VANCOMYCIN 750 MG in SODIUM CHLORIDE 0.9% 100 ML IV SCH (07:37)
[2016-06-30] MEDS: HEPARIN 5,000 UNITS/ML, 1ML SQ SCH ×2 (07:39→17:01)
[2016-06-30] MEDS: SENNA/DOCUSATE TABLET PO SCH (07:40)
[2016-06-30] MEDS: LACTOBACILLUS CHEW TABLET PO SCH ×3 (07:41→20:56)
[2016-06-30] MEDS: MAGNESIUM OXIDE 400 MG TABLET PO SCH (07:41)
[2016-06-30] MEDS: FLUOXETINE 20 MG CAPSULE PO SCH (07:42)
[2016-06-30] MEDS: CALCIUM CARBONATE 500 MG TABLET PO SCH (07:43)
[2016-06-30] MEDS: DIGOXIN 0.125 MG TABLET PO SCH (07:44)
[2016-06-30] MEDS: LORazepam 2 MG/ML, 1ML IVPush PRN ×2 (07:44→18:23)
[2016-06-30] MEDS: GUAIFENESIN ER 600 MG TABLET PO SCH ×2 (07:45→20:57)
[2016-06-30] MEDS: FLUTICASONE/VILANTEROL 200-25MCG/INH INH SCH (07:45)
[2016-06-30 07:56] VITALS: BP 182/65
[2016-06-30] MEDS: FLUTICASONE NASAL SPRAY 16GM NAS SCH (09:00)
[2016-06-30] MEDS ORDERED: POTASSIUM CHLORIDE 20 MEQ TAB.ER.PRT PO ONE (10:00)
[2016-06-30] MEDS: FUROSEMIDE 20 MG/2 ML IV SCH ×2 (11:24→20:56)
[2016-06-30] MEDS: ONDANSETRON 2MG/ML, 2ML IVPush PRN ×2 (11:41→20:56)
[2016-06-30] MEDS: POTASSIUM CHLORIDE 20 MEQ TAB.ER.PRT PO SCH ×2 (12:00→17:09)
[2016-06-30 13:20] VITALS: BP 177/78
[2016-06-30 20:18] VITALS: BP 148/64
[2016-07-01] MEDS: HEPARIN 5,000 UNITS/ML, 1ML SQ SCH ×3 (00:06→16:14)
[2016-07-01] MEDS: PIPERACILLIN/TAZO 2.25 GM in SODIUM CHLORIDE 0.9% 50 ML IV SCH ×4 (00:06→18:12)
[2016-07-01] MEDS: methylPREDNISolone SOD SUCC 125 MG/2 ML IVPush SCH ×5 (00:06→22:00)
[2016-07-01 01:08] VITALS: BP 184/64
[2016-07-01] MEDS: VANCOMYCIN 750 MG in SODIUM CHLORIDE 0.9% 100 ML IV SCH ×2 (01:48→20:03)
[2016-07-01 05:09] LABS: BLOOD UREA NITROGEN 32 mg/dL (7-18)
[2016-07-01] MEDS: GUAIFENESIN 200 MG TABLET PO SCH ×3 (05:40→16:15)
[2016-07-01] MEDS: THYROID 30 MG TABLET PO SCH ×2 (05:40→08:50)
[2016-07-01] MEDS: ONDANSETRON 2MG/ML, 2ML IVPush PRN ×2 (05:40→19:36)
[2016-07-01 06:43] VITALS: BP 157/62
[2016-07-01] MEDS: IPRATROPIUM 0.5 MG/2.5 ML INHA NPPB SCH (07:55)
[2016-07-01] MEDS: POTASSIUM CHLORIDE 20 MEQ TAB.ER.PRT PO SCH ×3 (08:00→16:15)
[2016-07-01] MEDS ORDERED: POTASSIUM CHLORIDE 20 MEQ TAB.ER.PRT PO ONE (08:30)
[2016-07-01] MEDS: OMEPRAZOLE 20 MG CAPSULE.DR PO SCH (08:47)
[2016-07-01] MEDS: FLUTICASONE/VILANTEROL 200-25MCG/INH INH SCH (08:48)
[2016-07-01] MEDS: CALCIUM CARBONATE 500 MG TABLET PO SCH (08:49)
[2016-07-01] MEDS: FLUOXETINE 20 MG CAPSULE PO SCH (08:50)
[2016-07-01] MEDS: SENNA/DOCUSATE TABLET PO SCH (08:50)
[2016-07-01] MEDS: LACTOBACILLUS CHEW TABLET PO SCH ×3 (08:51→22:00)
[2016-07-01] MEDS: GUAIFENESIN ER 600 MG TABLET PO SCH ×2 (08:52→20:04)
[2016-07-01] MEDS: DIGOXIN 0.125 MG TABLET PO SCH (08:53)
[2016-07-01] MEDS: MAGNESIUM OXIDE 400 MG TABLET PO SCH (08:53)
[2016-07-01] MEDS: FUROSEMIDE 20 MG/2 ML IV SCH ×2 (09:03→20:03)
[2016-07-01] MEDS: FLUTICASONE NASAL SPRAY 16GM NAS SCH (09:03)
[2016-07-01 12:34] VITALS: BP 146/67
[2016-07-01 19:56] VITALS: BP 152/59
[2016-07-01] MEDS: LORazepam 2 MG/ML, 1ML IVPush PRN (20:05)
[2016-07-02] MEDS: HEPARIN 5,000 UNITS/ML, 1ML SQ SCH ×3 (00:05→16:54)
[2016-07-02] MEDS: PIPERACILLIN/TAZO 2.25 GM in SODIUM CHLORIDE 0.9% 50 ML IV SCH ×5 (00:05→23:26)
[2016-07-02 01:32] VITALS: BP 135/58
[2016-07-02] MEDS: THYROID 30 MG TABLET PO SCH (05:09)
[2016-07-02] MEDS: methylPREDNISolone SOD SUCC 125 MG/2 ML IVPush SCH ×4 (05:09→23:25)
[2016-07-02] MEDS: GUAIFENESIN 200 MG TABLET PO SCH (05:09)
[2016-07-02 05:23] LABS: ASPARTATE AMINO TRANSFERASE 19 U/L (15-37); BLOOD UREA NITROGEN 36 mg/dL (7-18)
[2016-07-02 07:08] VITALS: BP 149/72
[2016-07-02] MEDS: IPRATROPIUM 0.5 MG/2.5 ML INHA NPPB SCH ×5 (08:15→21:00)
[2016-07-02] MEDS: FLUTICASONE NASAL SPRAY 16GM NAS SCH (09:00)
[2016-07-02] MEDS: FUROSEMIDE 20 MG/2 ML IV SCH ×2 (09:00→22:16)
[2016-07-02] MEDS: SENNA/DOCUSATE TABLET PO SCH (09:00)
[2016-07-02] MEDS ORDERED: ACID1TAB7 PO (09:40)
[2016-07-02] MEDS ORDERED: FURO10VI37 IV (09:40)
[2016-07-02] MEDS ORDERED: GUAI600T22 PO (09:40)
[2016-07-02] MEDS ORDERED: GUAI200T3 PO (09:40)
[2016-07-02] MEDS ORDERED: CALC-666 PO (09:40)
[2016-07-02] MEDS ORDERED: ALPR-475 PO (09:40)
[2016-07-02] MEDS ORDERED: HEPA5000 SQ (09:40)
[2016-07-02] MEDS ORDERED: METH125V16 IVPush (09:40)
[2016-07-02] MEDS ORDERED: LORA2VIA4 IVPush (09:40)
[2016-07-02] MEDS ORDERED: Vancomycin Per Pharmacy MC (09:41)
[2016-07-02] MEDS ORDERED: POTA20TA6 PO (09:41)
[2016-07-02] MEDS ORDERED: MORP10VI10 IVPush (09:41)
[2016-07-02] MEDS ORDERED: VANC750F IV (09:41)
[2016-07-02] MEDS ORDERED: OXYC5TAB3 PO (09:41)
[2016-07-02] MEDS ORDERED: THYR30TA PO (09:41)
[2016-07-02] MEDS ORDERED: ONDA4VIA4 IVPush (09:41)
[2016-07-02] MEDS ORDERED: OMEP-110 PO (09:41)
[2016-07-02] MEDS ORDERED: PIPE2.255 IV (09:41)
[2016-07-02] MEDS: FLUTICASONE/VILANTEROL 200-25MCG/INH INH SCH (10:25)
[2016-07-02] MEDS: FLUCONAZOLE 200 MG/100 ML 100 ML IV SCH (10:26)
[2016-07-02] MEDS: LORazepam 2 MG/ML, 1ML IVPush PRN ×2 (10:37→16:54)
[2016-07-02] MEDS: CALCIUM CARBONATE 500 MG TABLET PO SCH (10:42)
[2016-07-02] MEDS: LACTOBACILLUS CHEW TABLET PO SCH ×3 (10:43→22:16)
[2016-07-02] MEDS: POTASSIUM CHLORIDE 20 MEQ TAB.ER.PRT PO SCH ×3 (10:43→16:57)
[2016-07-02] MEDS: FLUOXETINE 20 MG CAPSULE PO SCH (10:43)
[2016-07-02] MEDS: MAGNESIUM OXIDE 400 MG TABLET PO SCH (10:44)
[2016-07-02] MEDS: DIGOXIN 0.125 MG TABLET PO SCH (10:44)
[2016-07-02] MEDS: OMEPRAZOLE 20 MG CAPSULE.DR PO SCH (10:45)
[2016-07-02] MEDS: GUAIFENESIN ER 600 MG TABLET PO SCH ×2 (10:46→22:16)
[2016-07-02 13:11] VITALS: BP 174/56
[2016-07-02] MEDS: VANCOMYCIN 750 MG in SODIUM CHLORIDE 0.9% 100 ML IV SCH (14:41)
[2016-07-02] MEDS: morphine SULFATE 10 MG/ML, 1ML IVPush PRN ×3 (19:22→23:12)
[2016-07-02] MEDS ORDERED: LIDOCAINE 1%, 50ML ONE (19:48)
[2016-07-02] MEDS: IBUPROFEN 200 MG TABLET PO PRN (22:16)
[2016-07-02] MEDS: ONDANSETRON 2MG/ML, 2ML IVPush PRN (23:12)
[2016-07-02] MEDS: hydrALAzine 20 MG/ML, 1ML IV PRN (23:57)
[2016-07-03] MEDS: HEPARIN 5,000 UNITS/ML, 1ML SQ SCH ×3 (00:46→16:34)
[2016-07-03] MEDS ORDERED: DILTIAZEM 5 MG/ML, 5ML ONE (03:28)
[2016-07-03] MEDS: DIPHENHYDRAMINE 50 MG/ML, 1ML IVPush PRN ×2 (03:32→23:07)
[2016-07-03] MEDS: FENTANYL PF 100 MCG/2ML IVPush PRN ×7 (03:32→21:15)
[2016-07-03 04:32] LABS: BLOOD UREA NITROGEN 33 mg/dL (7-18)
[2016-07-03] MEDS: PIPERACILLIN/TAZO 2.25 GM in SODIUM CHLORIDE 0.9% 50 ML IV SCH ×3 (05:59→18:12)
[2016-07-03] MEDS: methylPREDNISolone SOD SUCC 125 MG/2 ML IVPush SCH ×4 (06:08→23:00)
[2016-07-03] MEDS: THYROID 30 MG TABLET PO SCH (06:09)
[2016-07-03] MEDS: IPRATROPIUM 0.5 MG/2.5 ML INHA NPPB SCH ×4 (07:10→19:53)
[2016-07-03] MEDS: OMEPRAZOLE 20 MG CAPSULE.DR PO SCH ×2 (07:30→21:13)
[2016-07-03] MEDS: VANCOMYCIN 750 MG in SODIUM CHLORIDE 0.9% 100 ML IV SCH (08:44)
[2016-07-03] MEDS: POTASSIUM CHLORIDE 20 MEQ TAB.ER.PRT PO SCH ×3 (08:49→18:12)
[2016-07-03] MEDS: GUAIFENESIN ER 600 MG TABLET PO SCH ×2 (08:50→21:14)
[2016-07-03] MEDS: LACTOBACILLUS CHEW TABLET PO SCH ×3 (08:51→21:13)
[2016-07-03] MEDS: CALCIUM CARBONATE 500 MG TABLET PO SCH (08:51)
[2016-07-03] MEDS: DIGOXIN 0.125 MG TABLET PO SCH (08:51)
[2016-07-03] MEDS: MAGNESIUM OXIDE 400 MG TABLET PO SCH (08:51)
[2016-07-03] MEDS: FLUOXETINE 20 MG CAPSULE PO SCH (08:51)
[2016-07-03] MEDS: SENNA/DOCUSATE TABLET PO SCH (08:52)
[2016-07-03 09:00] VITALS: BP 158/58
[2016-07-03] MEDS: FLUTICASONE/VILANTEROL 200-25MCG/INH INH SCH (09:04)
[2016-07-03] MEDS: maalox/diphenh/lido/sucralfate 5 ML PO PRN (09:04)
[2016-07-03] MEDS: FLUTICASONE NASAL SPRAY 16GM NAS SCH (09:04)
[2016-07-03] MEDS: FUROSEMIDE 20 MG/2 ML IV SCH ×2 (09:04→21:12)
[2016-07-03] MEDS: FLUCONAZOLE 200 MG/100 ML 100 ML IV SCH (10:30)
[2016-07-04] MEDS: HEPARIN 5,000 UNITS/ML, 1ML SQ SCH ×4 (00:45→23:24)
[2016-07-04] MEDS: PIPERACILLIN/TAZO 2.25 GM in SODIUM CHLORIDE 0.9% 50 ML IV SCH ×5 (00:45→23:24)
[2016-07-04] MEDS: FENTANYL PF 100 MCG/2ML IVPush PRN ×3 (00:45→14:35)
[2016-07-04] MEDS: VANCOMYCIN 750 MG in SODIUM CHLORIDE 0.9% 100 ML IV SCH ×2 (02:21→20:38)
[2016-07-04] MEDS: methylPREDNISolone SOD SUCC 125 MG/2 ML IVPush SCH ×4 (04:33→22:37)
[2016-07-04] MEDS: ONDANSETRON 2MG/ML, 2ML IVPush PRN ×2 (04:38→14:36)
[2016-07-04 04:44] LABS: BLOOD UREA NITROGEN 34 mg/dL (7-18)
[2016-07-04] MEDS: hydrALAzine 20 MG/ML, 1ML IV PRN (05:09)
[2016-07-04] MEDS: THYROID 30 MG TABLET PO SCH (05:50)
[2016-07-04] MEDS: IPRATROPIUM 0.5 MG/2.5 ML INHA NPPB SCH ×4 (06:00→20:35)
[2016-07-04] MEDS: DEXILANT 60 MG PO SCH (06:03)
[2016-07-04] MEDS ORDERED: DEXILANT 60 MG PO SCH (07:30)
[2016-07-04] MEDS: SENNA/DOCUSATE TABLET PO SCH (08:59)
[2016-07-04] MEDS: GUAIFENESIN ER 600 MG TABLET PO SCH ×2 (09:02→20:39)
[2016-07-04] MEDS: LACTOBACILLUS CHEW TABLET PO SCH ×3 (09:02→20:40)
[2016-07-04] MEDS: POTASSIUM CHLORIDE 20 MEQ TAB.ER.PRT PO SCH ×3 (09:02→17:42)
[2016-07-04] MEDS: MAGNESIUM OXIDE 400 MG TABLET PO SCH (09:02)
[2016-07-04] MEDS: FLUOXETINE 20 MG CAPSULE PO SCH (09:03)
[2016-07-04] MEDS: FLUTICASONE NASAL SPRAY 16GM NAS SCH (09:03)
[2016-07-04] MEDS: DIGOXIN 0.125 MG TABLET PO SCH (09:03)
[2016-07-04] MEDS: CALCIUM CARBONATE 500 MG TABLET PO SCH (09:03)
[2016-07-04] MEDS: FLUTICASONE/VILANTEROL 200-25MCG/INH INH SCH (09:03)
[2016-07-04] MEDS: FUROSEMIDE 20 MG/2 ML IV SCH ×2 (09:04→20:38)
[2016-07-04] MEDS: FLUCONAZOLE 200 MG/100 ML 100 ML IV SCH (09:20)
[2016-07-04] MEDS: OMEPRAZOLE 20 MG CAPSULE.DR PO SCH (20:40)
[2016-07-04] MEDS: DIPHENHYDRAMINE 50 MG/ML, 1ML IVPush PRN (22:37)
[2016-07-05 04:11] LABS: BLOOD UREA NITROGEN 41 mg/dL (7-18)
[2016-07-05] MEDS: methylPREDNISolone SOD SUCC 125 MG/2 ML IVPush SCH ×3 (05:42→15:59)
[2016-07-05] MEDS: PIPERACILLIN/TAZO 2.25 GM in SODIUM CHLORIDE 0.9% 50 ML IV SCH ×3 (05:42→18:00)
[2016-07-05] MEDS: THYROID 30 MG TABLET PO SCH (05:42)
[2016-07-05] MEDS: IPRATROPIUM 0.5 MG/2.5 ML INHA NPPB SCH ×4 (06:00→19:23)
[2016-07-05 07:00] VITALS: BP 155/70
[2016-07-05] MEDS: DEXILANT 60 MG PO SCH (07:30)
[2016-07-05] MEDS: SENNA/DOCUSATE TABLET PO SCH (09:00)
[2016-07-05] MEDS: FLUTICASONE NASAL SPRAY 16GM NAS SCH (09:45)
[2016-07-05] MEDS: FLUTICASONE/VILANTEROL 200-25MCG/INH INH SCH (09:45)
[2016-07-05] MEDS: DIGOXIN 0.125 MG TABLET PO SCH (09:46)
[2016-07-05] MEDS: POTASSIUM CHLORIDE 20 MEQ TAB.ER.PRT PO SCH ×3 (09:46→15:59)
[2016-07-05] MEDS: LACTOBACILLUS CHEW TABLET PO SCH ×3 (09:46→21:36)
[2016-07-05] MEDS: CALCIUM CARBONATE 500 MG TABLET PO SCH (09:46)
[2016-07-05] MEDS: FLUOXETINE 20 MG CAPSULE PO SCH (09:46)
[2016-07-05] MEDS: HEPARIN 5,000 UNITS/ML, 1ML SQ SCH ×2 (09:47→15:59)
[2016-07-05] MEDS: GUAIFENESIN ER 600 MG TABLET PO SCH ×2 (09:48→21:36)
[2016-07-05] MEDS: FUROSEMIDE 20 MG/2 ML IV SCH ×2 (09:48→21:36)
[2016-07-05] MEDS: MAGNESIUM OXIDE 400 MG TABLET PO SCH (09:48)
[2016-07-05] MEDS: FENTANYL PF 100 MCG/2ML IVPush PRN ×4 (10:13→21:28)
[2016-07-05] MEDS: FLUCONAZOLE 200 MG/100 ML 100 ML IV SCH (10:15)
[2016-07-05] MEDS: VANCOMYCIN 750 MG in SODIUM CHLORIDE 0.9% 100 ML IV SCH (15:59)
[2016-07-05 19:53] VITALS: BP 133/63
[2016-07-05] MEDS: OMEPRAZOLE 20 MG CAPSULE.DR PO SCH (21:36)
[2016-07-06] MEDS: methylPREDNISolone SOD SUCC 125 MG/2 ML IVPush SCH ×5 (00:02→21:41)
[2016-07-06] MEDS: DIPHENHYDRAMINE 50 MG/ML, 1ML IVPush PRN (00:03)
[2016-07-06] MEDS: HEPARIN 5,000 UNITS/ML, 1ML SQ SCH ×3 (00:03→16:28)
[2016-07-06] MEDS: PIPERACILLIN/TAZO 2.25 GM in SODIUM CHLORIDE 0.9% 50 ML IV SCH ×4 (00:03→17:54)
[2016-07-06] MEDS: THYROID 30 MG TABLET PO SCH (05:29)
[2016-07-06] MEDS: IPRATROPIUM 0.5 MG/2.5 ML INHA NPPB SCH ×4 (06:00→23:20)
[2016-07-06 06:15] LABS: BLOOD UREA NITROGEN 40 mg/dL (7-18)
[2016-07-06] MEDS: FENTANYL PF 100 MCG/2ML IVPush PRN ×7 (07:10→23:04)
[2016-07-06 07:15] VITALS: BP 148/67
[2016-07-06] MEDS: DEXILANT 60 MG PO SCH (09:04)
[2016-07-06] MEDS: FLUTICASONE NASAL SPRAY 16GM NAS SCH (09:06)
[2016-07-06] MEDS: POTASSIUM CHLORIDE 20 MEQ TAB.ER.PRT PO SCH ×3 (09:06→16:30)
[2016-07-06] MEDS: FLUTICASONE/VILANTEROL 200-25MCG/INH INH SCH (09:06)
[2016-07-06] MEDS: FUROSEMIDE 20 MG/2 ML IV SCH ×2 (09:06→21:42)
[2016-07-06] MEDS: LACTOBACILLUS CHEW TABLET PO SCH ×3 (09:07→21:41)
[2016-07-06] MEDS: GUAIFENESIN ER 600 MG TABLET PO SCH ×2 (09:07→21:41)
[2016-07-06] MEDS: DIGOXIN 0.125 MG TABLET PO SCH (09:07)
[2016-07-06] MEDS: SENNA/DOCUSATE TABLET PO SCH (09:08)
[2016-07-06] MEDS: CALCIUM CARBONATE 500 MG TABLET PO SCH (09:08)
[2016-07-06] MEDS: FLUOXETINE 20 MG CAPSULE PO SCH (09:08)
[2016-07-06] MEDS: MAGNESIUM OXIDE 400 MG TABLET PO SCH (09:09)
[2016-07-06] MEDS: VANCOMYCIN 750 MG in SODIUM CHLORIDE 0.9% 100 ML IV SCH (10:40)
[2016-07-06] MEDS: FLUCONAZOLE 200 MG/100 ML 100 ML IV SCH (11:56)
[2016-07-06 13:46] VITALS: BP 189/86
[2016-07-06] MEDS: hydrALAzine 20 MG/ML, 1ML IV PRN (14:07)
[2016-07-06 15:59] VITALS: BP 148/63
[2016-07-06] MEDS: maalox/diphenh/lido/sucralfate 5 ML PO PRN (16:27)
[2016-07-06 20:39] VITALS: BP 117/58
[2016-07-06] MEDS: OMEPRAZOLE 20 MG CAPSULE.DR PO SCH (21:41)
[2016-07-07] MEDS: HEPARIN 5,000 UNITS/ML, 1ML SQ SCH ×3 (00:23→17:35)
[2016-07-07] MEDS: PIPERACILLIN/TAZO 2.25 GM in SODIUM CHLORIDE 0.9% 50 ML IV SCH ×4 (00:23→20:10)
[2016-07-07] MEDS: FENTANYL PF 100 MCG/2ML IVPush PRN ×8 (01:08→22:30)
[2016-07-07 03:00] VITALS: BP 132/58
[2016-07-07] MEDS: VANCOMYCIN 750 MG in SODIUM CHLORIDE 0.9% 100 ML IV SCH ×2 (04:17→22:30)
[2016-07-07 04:47] LABS: ASPARTATE AMINO TRANSFERASE 8 U/L (15-37); BLOOD UREA NITROGEN 36 mg/dL (7-18)
[2016-07-07] MEDS: methylPREDNISolone SOD SUCC 125 MG/2 ML IVPush SCH ×2 (05:48→17:36)
[2016-07-07] MEDS: THYROID 30 MG TABLET PO SCH (05:48)
[2016-07-07] MEDS: FUROSEMIDE 20 MG/2 ML IV SCH ×2 (05:48→17:47)
[2016-07-07] MEDS: GUAIFENESIN ER 600 MG TABLET PO SCH ×2 (07:52→20:10)
[2016-07-07] MEDS: FLUOXETINE 20 MG CAPSULE PO SCH (07:52)
[2016-07-07] MEDS: FLUTICASONE/VILANTEROL 200-25MCG/INH INH SCH (07:53)
[2016-07-07] MEDS: POTASSIUM CHLORIDE 20 MEQ TAB.ER.PRT PO SCH ×4 (07:53→17:00)
[2016-07-07] MEDS: FLUTICASONE NASAL SPRAY 16GM NAS SCH (07:53)
[2016-07-07] MEDS: LACTOBACILLUS CHEW TABLET PO SCH ×3 (07:54→20:10)
[2016-07-07] MEDS: DIGOXIN 0.125 MG TABLET PO SCH (07:54)
[2016-07-07 07:55] VITALS: BP 141/58
[2016-07-07] MEDS: CALCIUM CARBONATE 500 MG TABLET PO SCH (07:55)
[2016-07-07] MEDS: MAGNESIUM OXIDE 400 MG TABLET PO SCH (07:55)
[2016-07-07] MEDS: SENNA/DOCUSATE TABLET PO SCH (07:56)
[2016-07-07] MEDS: DEXILANT 60 MG PO SCH (08:00)
[2016-07-07] MEDS ORDERED: ALBUTEROL/IPRATROPIUM 2.5MG/0.5MG, 3 ML ONE (08:18)
[2016-07-07] MEDS: ALBUTEROL/IPRATROPIUM 2.5MG/0.5MG, 3 ML NPPB SCH ×3 (08:35→20:20)
[2016-07-07] MEDS: ONDANSETRON 2MG/ML, 2ML IVPush PRN ×2 (09:58→17:47)
[2016-07-07] MEDS: OMEPRAZOLE 20 MG CAPSULE.DR PO SCH (10:02)
[2016-07-07] MEDS: FLUCONAZOLE 200 MG/100 ML 100 ML IV SCH (10:23)
[2016-07-07 14:40] VITALS: BP 113/62
[2016-07-07] MEDS: maalox/diphenh/lido/sucralfate 5 ML PO PRN (14:48)
[2016-07-07] MEDS: IBUPROFEN 200 MG TABLET PO PRN (20:10)
[2016-07-07 20:35] VITALS: BP 119/56
[2016-07-08] MEDS: HEPARIN 5,000 UNITS/ML, 1ML SQ SCH ×3 (01:34→17:27)
[2016-07-08] MEDS: PIPERACILLIN/TAZO 2.25 GM in SODIUM CHLORIDE 0.9% 50 ML IV SCH ×2 (01:34→07:46)
[2016-07-08] MEDS: FENTANYL PF 100 MCG/2ML IVPush PRN ×7 (01:41→20:06)
[2016-07-08 02:41] VITALS: BP 113/57
[2016-07-08] MEDS: methylPREDNISolone SOD SUCC 125 MG/2 ML IVPush SCH ×2 (04:43→17:27)
[2016-07-08] MEDS: THYROID 30 MG TABLET PO SCH (05:49)
[2016-07-08] MEDS: FUROSEMIDE 20 MG/2 ML IV SCH (05:49)
[2016-07-08 07:17] VITALS: BP 135/75
[2016-07-08] MEDS: DEXILANT 60 MG PO SCH (07:30)
[2016-07-08] MEDS: FLUTICASONE NASAL SPRAY 16GM NAS SCH (07:46)
[2016-07-08] MEDS: FLUTICASONE/VILANTEROL 200-25MCG/INH INH SCH (07:47)
[2016-07-08] MEDS: SENNA/DOCUSATE TABLET PO SCH (07:48)
[2016-07-08] MEDS: FLUOXETINE 20 MG CAPSULE PO SCH (07:49)
[2016-07-08] MEDS: GUAIFENESIN ER 600 MG TABLET PO SCH ×2 (07:49→20:06)
[2016-07-08] MEDS: POTASSIUM CHLORIDE 20 MEQ TAB.ER.PRT PO SCH ×3 (07:49→17:27)
[2016-07-08] MEDS: CALCIUM CARBONATE 500 MG TABLET PO SCH (07:49)
[2016-07-08] MEDS: DIGOXIN 0.125 MG TABLET PO SCH (07:50)
[2016-07-08] MEDS: MAGNESIUM OXIDE 400 MG TABLET PO SCH (07:51)
[2016-07-08] MEDS: LACTOBACILLUS CHEW TABLET PO SCH ×3 (07:51→20:06)
[2016-07-08] MEDS: ALBUTEROL/IPRATROPIUM 2.5MG/0.5MG, 3 ML NPPB SCH ×4 (08:20→20:00)
[2016-07-08] MEDS: FLUCONAZOLE 200 MG/100 ML 100 ML IV SCH (09:49)
[2016-07-08] MEDS ORDERED: IBUPROFEN 200 MG TABLET HOMEMEDPO PRN (11:30)
[2016-07-08 14:07] VITALS: BP 123/54
[2016-07-08] MEDS: ONDANSETRON 2MG/ML, 2ML IVPush PRN (17:40)
[2016-07-08] MEDS: OMEPRAZOLE 20 MG CAPSULE.DR PO SCH (20:06)
[2016-07-09] MEDS: FENTANYL PF 100 MCG/2ML IVPush PRN ×7 (01:18→23:05)
[2016-07-09] MEDS: HEPARIN 5,000 UNITS/ML, 1ML SQ SCH (01:18)
[2016-07-09] MEDS: methylPREDNISolone SOD SUCC 125 MG/2 ML IVPush SCH ×2 (05:00→16:10)
[2016-07-09] MEDS: THYROID 30 MG TABLET PO SCH (05:39)
[2016-07-09 06:23] LABS: BLOOD UREA NITROGEN 31 mg/dL (7-18)
[2016-07-09] MEDS: ALBUTEROL/IPRATROPIUM 2.5MG/0.5MG, 3 ML NPPB SCH ×4 (06:25→22:40)
[2016-07-09] MEDS ORDERED: BUPIVACAINE/PF-EPI 0.5% 1:200K ONE ×2 (06:59→15:16)
[2016-07-09] MEDS: POTASSIUM CHLORIDE 20 MEQ TAB.ER.PRT PO SCH ×3 (08:00→16:11)
[2016-07-09] MEDS: GUAIFENESIN ER 600 MG TABLET PO SCH ×3 (09:00→22:09)
[2016-07-09] MEDS: FLUOXETINE 20 MG CAPSULE PO SCH (09:00)
[2016-07-09] MEDS: FLUTICASONE/VILANTEROL 200-25MCG/INH INH SCH (09:00)
[2016-07-09] MEDS: CALCIUM CARBONATE 500 MG TABLET PO SCH (09:00)
[2016-07-09] MEDS: FLUTICASONE NASAL SPRAY 16GM NAS SCH (09:00)
[2016-07-09] MEDS: SENNA/DOCUSATE TABLET PO SCH (09:00)
[2016-07-09] MEDS: MAGNESIUM OXIDE 400 MG TABLET PO SCH (09:00)
[2016-07-09 09:13] VITALS: BP 118/66
[2016-07-09] MEDS: ONDANSETRON 2MG/ML, 2ML IVPush PRN (09:23)
[2016-07-09] MEDS ORDERED: CEFAZOLIN 1,000 MG ONE (10:18)
[2016-07-09] MEDS ORDERED: DEXAMETHASONE 4 MG/ML, 1ML ONE (10:18)
[2016-07-09] MEDS ORDERED: PROPOFOL 10 MG/ML, 20ML ONE (10:18)
[2016-07-09] MEDS ORDERED: ROCURONIUM 10 MG/ML ONE (10:18)
[2016-07-09] MEDS ORDERED: NEOSTIGMINE 1 MG/ML, 10ML ONE (10:18)
[2016-07-09] MEDS ORDERED: GLYCOPYRROLATE 0.2MG/1ML ONE (10:18)
[2016-07-09] MEDS ORDERED: ONDANSETRON 2MG/ML, 2ML ONE (10:18)
[2016-07-09] MEDS: LACTOBACILLUS CHEW TABLET PO SCH ×4 (10:40→22:09)
[2016-07-09] MEDS: DIGOXIN 0.125 MG TABLET PO SCH (10:42)
[2016-07-09 13:38] VITALS: BP 117/66
[2016-07-09] MEDS ORDERED: FENTANYL PF 250 MCG/5ML ONE (14:42)
[2016-07-09] MEDS ORDERED: MIDAZOLAM 1 MG/ML, 2ML ONE (14:42)
[2016-07-09] MEDS ORDERED: TALC 30 GM AERO.PWD INTRAPL ONE (15:16)
[2016-07-09] MEDS ORDERED: VASOPRESSIN 20 UNIT/ML, 1ML ONE (15:33)
[2016-07-09] MEDS ORDERED: ONDANSETRON 2MG/ML, 2ML IVPush PRN (17:30)
[2016-07-09] MEDS ORDERED: ALBUTEROL/IPRATROPIUM 2.5MG/0.5MG, 3 ML NPPB PRN (17:30)
[2016-07-09] MEDS ORDERED: METOPROLOL 1 MG/ML, 5ML IV PRN (17:30)
[2016-07-09] MEDS ORDERED: PROMETHAZINE 25 MG/ML, 1ML IV PRN (17:30)
[2016-07-09] MEDS ORDERED: ALBUTEROL/IPRATROPIUM 2.5MG/0.5MG, 3 ML ONE (17:30)
[2016-07-09] MEDS ORDERED: hydrALAzine 20 MG/ML, 1ML IV PRN (17:30)
[2016-07-09] MEDS ORDERED: FENTANYL PF 100 MCG/2ML ONE (17:48)
[2016-07-09] MEDS: FENTANYL PF 100 MCG/2ML IV PRN ×3 (17:50→18:06)
[2016-07-09] MEDS: OMEPRAZOLE 20 MG CAPSULE.DR PO SCH ×2 (20:40→22:09)
[2016-07-09 21:10] VITALS: BP 116/54
[2016-07-10 00:32] VITALS: BP 130/71
[2016-07-10] MEDS: FENTANYL PF 100 MCG/2ML IVPush PRN ×10 (01:10→21:56)
[2016-07-10 04:34] VITALS: BP 120/65
[2016-07-10] MEDS: methylPREDNISolone SOD SUCC 125 MG/2 ML IVPush SCH ×2 (05:37→17:11)
[2016-07-10] MEDS: THYROID 30 MG TABLET PO SCH (05:38)
[2016-07-10] MEDS: HEPARIN 5,000 UNITS/ML, 1ML SQ SCH ×3 (05:38→22:48)
[2016-07-10 06:33] LABS: BLOOD UREA NITROGEN 24 mg/dL (7-18)
[2016-07-10 06:57] LABS: DIFF TOTAL CELLS COUNTED 100 CELL DIFF
[2016-07-10] MEDS: ALBUTEROL/IPRATROPIUM 2.5MG/0.5MG, 3 ML NPPB SCH ×4 (07:00→22:25)
[2016-07-10 07:03] LABS: ANISOCYTOSIS 1+; MICROCYTOSIS 1+; VERIFY COUNTS? YES
[2016-07-10] MEDS: FLUTICASONE NASAL SPRAY 16GM NAS SCH (08:09)
[2016-07-10] MEDS: LACTOBACILLUS CHEW TABLET PO SCH ×4 (08:10→20:43)
[2016-07-10] MEDS: POTASSIUM CHLORIDE 20 MEQ TAB.ER.PRT PO SCH ×4 (08:10→17:11)
[2016-07-10] MEDS: FLUOXETINE 20 MG CAPSULE PO SCH (08:10)
[2016-07-10] MEDS: GUAIFENESIN ER 600 MG TABLET PO SCH ×2 (08:10→20:43)
[2016-07-10] MEDS: MAGNESIUM OXIDE 400 MG TABLET PO SCH ×2 (08:11→09:00)
[2016-07-10] MEDS: DIGOXIN 0.125 MG TABLET PO SCH (08:11)
[2016-07-10] MEDS: FLUTICASONE/VILANTEROL 200-25MCG/INH INH SCH (08:12)
[2016-07-10] MEDS: SENNA/DOCUSATE TABLET PO SCH (08:12)
[2016-07-10 08:44] VITALS: BP 111/53
[2016-07-10] MEDS: CALCIUM CARBONATE 500 MG TABLET PO SCH (09:00)
[2016-07-10 13:47] VITALS: BP 137/61
[2016-07-10 18:39] VITALS: BP 158/91
[2016-07-10] MEDS: METOCLOPRAMIDE 5 MG/ML, 2ML IVPush PRN (20:43)
[2016-07-10] MEDS: OMEPRAZOLE 20 MG CAPSULE.DR PO SCH (20:43)
[2016-07-11] MEDS: FENTANYL PF 100 MCG/2ML IVPush PRN ×8 (00:12→22:57)
[2016-07-11 03:01] VITALS: BP 150/59
[2016-07-11] MEDS: methylPREDNISolone SOD SUCC 125 MG/2 ML IVPush SCH (04:35)
[2016-07-11] MEDS: THYROID 30 MG TABLET PO SCH (05:21)
[2016-07-11] MEDS: HEPARIN 5,000 UNITS/ML, 1ML SQ SCH ×3 (05:22→21:08)
[2016-07-11 05:33] LABS: BLOOD UREA NITROGEN 23 mg/dL (7-18)
[2016-07-11] MEDS: ALBUTEROL/IPRATROPIUM 2.5MG/0.5MG, 3 ML NPPB SCH ×4 (06:45→20:50)
[2016-07-11 07:50] VITALS: BP 173/78
[2016-07-11] MEDS: GUAIFENESIN ER 600 MG TABLET PO SCH ×2 (10:53→21:07)
[2016-07-11] MEDS: LACTOBACILLUS CHEW TABLET PO SCH ×3 (10:53→21:08)
[2016-07-11] MEDS: FLUTICASONE NASAL SPRAY 16GM NAS SCH (10:53)
[2016-07-11] MEDS: DIGOXIN 0.125 MG TABLET PO SCH (10:54)
[2016-07-11] MEDS: MEGESTROL ORAL.SUSP 40 MG/ML PO SCH (10:54)
[2016-07-11] MEDS: SENNA/DOCUSATE TABLET PO SCH (10:55)
[2016-07-11] MEDS: CALCIUM CARBONATE 500 MG TABLET PO SCH (10:56)
[2016-07-11] MEDS: FLUTICASONE/VILANTEROL 200-25MCG/INH INH SCH (10:56)
[2016-07-11] MEDS: MAGNESIUM OXIDE 400 MG TABLET PO SCH (10:56)
[2016-07-11] MEDS: POTASSIUM CHLORIDE 20 MEQ TAB.ER.PRT PO SCH ×3 (10:56→15:47)
[2016-07-11] MEDS ORDERED: DIPHENHYDRAMINE 50 MG/ML, 1ML IVPush ONE (11:00)
[2016-07-11 14:42] VITALS: BP 166/77
[2016-07-11 14:50] LABS: PATH.CAST-FLAG NOT PRESENT; SPERM-FLAG NOT PRESENT; SRC-FLAG NOT PRESENT; XTAL-FLAG NOT PRESENT; YLC-FLAG NOT PRESENT
[2016-07-11] MEDS ORDERED: MEROPENEM 500 MG in SODIUM CHLORIDE 0.9% 100 ML IV SCH (15:00)
[2016-07-11] MEDS: maalox/diphenh/lido/sucralfate 5 ML PO PRN ×2 (17:49→23:04)
[2016-07-11] MEDS: METOPROLOL TARTRATE 25 MG TABLET PO SCH (17:49)
[2016-07-11 20:29] VITALS: BP 147/66
[2016-07-11] MEDS: OMEPRAZOLE 20 MG CAPSULE.DR PO SCH (21:07)
[2016-07-12 02:19] VITALS: BP 127/60
[2016-07-12] MEDS: FENTANYL PF 100 MCG/2ML IVPush PRN ×4 (04:10→22:29)
[2016-07-12] MEDS: MEROPENEM 500 MG in SODIUM CHLORIDE 0.9% 100 ML IV SCH ×2 (04:10→16:42)
[2016-07-12 05:04] LABS: BLOOD UREA NITROGEN 17 mg/dL (7-18)
[2016-07-12 05:57] LABS: DIFF TOTAL CELLS COUNTED 100 CELL DIFF
[2016-07-12 05:59] LABS: ANISOCYTOSIS 1+; MICROCYTOSIS 1+; VERIFY COUNTS? YES
[2016-07-12 06:01] LABS: OVALOCYTES 1+
[2016-07-12 06:02] LABS: POLYCHROMASIA 1+
[2016-07-12] MEDS: HEPARIN 5,000 UNITS/ML, 1ML SQ SCH ×3 (06:10→22:28)
[2016-07-12] MEDS: THYROID 30 MG TABLET PO SCH (06:10)
[2016-07-12] MEDS: METOPROLOL TARTRATE 25 MG TABLET PO SCH ×2 (06:12→16:44)
[2016-07-12 07:26] VITALS: BP 131/74
[2016-07-12] MEDS: ALBUTEROL/IPRATROPIUM 2.5MG/0.5MG, 3 ML NPPB SCH ×4 (07:30→19:39)
[2016-07-12] MEDS: GUAIFENESIN ER 600 MG TABLET PO SCH ×2 (08:14→22:28)
[2016-07-12] MEDS: FLUTICASONE NASAL SPRAY 16GM NAS SCH (08:14)
[2016-07-12] MEDS: LACTOBACILLUS CHEW TABLET PO SCH ×3 (08:15→22:28)
[2016-07-12] MEDS: DIGOXIN 0.125 MG TABLET PO SCH (08:15)
[2016-07-12] MEDS: CALCIUM CARBONATE 500 MG TABLET PO SCH (08:17)
[2016-07-12] MEDS: SENNA/DOCUSATE TABLET PO SCH (08:17)
[2016-07-12] MEDS: MEGESTROL ORAL.SUSP 40 MG/ML PO SCH (08:17)
[2016-07-12] MEDS: MAGNESIUM OXIDE 400 MG TABLET PO SCH (08:19)
[2016-07-12] MEDS: FLUTICASONE/VILANTEROL 200-25MCG/INH INH SCH (08:22)
[2016-07-12 13:15] VITALS: BP 123/74
[2016-07-12] MEDS: MAGNESIUM HYDROXIDE 8%, 30ML UDC PO PRN (14:00)
[2016-07-12] MEDS: METOCLOPRAMIDE 5 MG/ML, 2ML IVPush PRN (14:00)
[2016-07-12] MEDS: maalox/diphenh/lido/sucralfate 5 ML PO PRN ×2 (14:04→22:29)
[2016-07-12] MEDS: GABAPENTIN 300 MG CAPSULE PO PRN (17:28)
[2016-07-12 19:47] VITALS: BP 110/59
[2016-07-12] MEDS: OMEPRAZOLE 20 MG CAPSULE.DR PO SCH (22:28)
[2016-07-13 02:24] VITALS: BP 113/50
[2016-07-13] MEDS: MEROPENEM 500 MG in SODIUM CHLORIDE 0.9% 100 ML IV SCH (04:57)
[2016-07-13] MEDS: METOPROLOL TARTRATE 25 MG TABLET PO SCH ×2 (05:02→17:19)
[2016-07-13] MEDS: THYROID 30 MG TABLET PO SCH (05:02)
[2016-07-13] MEDS: FENTANYL PF 100 MCG/2ML IVPush PRN ×3 (05:09→21:23)
[2016-07-13 05:32] LABS: BLOOD UREA NITROGEN 15 mg/dL (7-18)
[2016-07-13] MEDS: HEPARIN 5,000 UNITS/ML, 1ML SQ SCH ×3 (05:57→21:23)
[2016-07-13 07:25] VITALS: BP 128/61
[2016-07-13] MEDS: MAGNESIUM HYDROXIDE 8%, 30ML UDC PO PRN (08:43)
[2016-07-13] MEDS: FLUTICASONE NASAL SPRAY 16GM NAS SCH (08:43)
[2016-07-13] MEDS: GUAIFENESIN ER 600 MG TABLET PO SCH ×2 (08:44→21:23)
[2016-07-13] MEDS: SENNA/DOCUSATE TABLET PO SCH (08:44)
[2016-07-13] MEDS: FLUTICASONE/VILANTEROL 200-25MCG/INH INH SCH (08:44)
[2016-07-13] MEDS: MEGESTROL ORAL.SUSP 40 MG/ML PO SCH ×2 (08:44→08:47)
[2016-07-13] MEDS: LACTOBACILLUS CHEW TABLET PO SCH ×3 (08:44→21:23)
[2016-07-13] MEDS: DIGOXIN 0.125 MG TABLET PO SCH (08:45)
[2016-07-13] MEDS: MAGNESIUM OXIDE 400 MG TABLET PO SCH (08:45)
[2016-07-13] MEDS: CALCIUM CARBONATE 500 MG TABLET PO SCH (08:45)
[2016-07-13] MEDS: ALBUTEROL/IPRATROPIUM 2.5MG/0.5MG, 3 ML NPPB SCH ×4 (08:54→18:45)
[2016-07-13 13:02] VITALS: BP 140/72
[2016-07-13 19:00] VITALS: BP 126/63
[2016-07-13] MEDS: OMEPRAZOLE 20 MG CAPSULE.DR PO SCH (21:23)
[2016-07-13] MEDS: GABAPENTIN 300 MG CAPSULE PO PRN (21:23)
[2016-07-14 02:34] VITALS: BP 133/58
[2016-07-14] MEDS: THYROID 30 MG TABLET PO SCH (05:06)
[2016-07-14] MEDS: HEPARIN 5,000 UNITS/ML, 1ML SQ SCH ×3 (05:06→23:11)
[2016-07-14] MEDS: METOPROLOL TARTRATE 25 MG TABLET PO SCH ×2 (05:06→18:24)
[2016-07-14 05:46] LABS: BLOOD UREA NITROGEN 9 mg/dL (7-18)
[2016-07-14] MEDS: ALBUTEROL/IPRATROPIUM 2.5MG/0.5MG, 3 ML NPPB SCH ×4 (06:42→20:12)
[2016-07-14 07:10] VITALS: BP 134/58
[2016-07-14] MEDS: LACTOBACILLUS CHEW TABLET PO SCH ×3 (08:32→20:53)
[2016-07-14] MEDS: FLUTICASONE NASAL SPRAY 16GM NAS SCH (08:32)
[2016-07-14] MEDS: GUAIFENESIN ER 600 MG TABLET PO SCH ×2 (08:32→20:53)
[2016-07-14] MEDS: FLUTICASONE/VILANTEROL 200-25MCG/INH INH SCH (08:32)
[2016-07-14] MEDS: MAGNESIUM OXIDE 400 MG TABLET PO SCH (08:33)
[2016-07-14] MEDS: DIGOXIN 0.125 MG TABLET PO SCH (08:33)
[2016-07-14] MEDS: SENNA/DOCUSATE TABLET PO SCH (08:33)
[2016-07-14] MEDS: CALCIUM CARBONATE 500 MG TABLET PO SCH (08:33)
[2016-07-14] MEDS: MEGESTROL ORAL.SUSP 40 MG/ML PO SCH (08:36)
[2016-07-14] MEDS: GABAPENTIN 300 MG CAPSULE PO PRN ×2 (10:33→20:52)
[2016-07-14 12:28] VITALS: BP 129/72
[2016-07-14] MEDS: FENTANYL PF 100 MCG/2ML IVPush PRN ×3 (15:31→20:53)
[2016-07-14 19:24] VITALS: BP 115/67
[2016-07-14] MEDS: OMEPRAZOLE 20 MG CAPSULE.DR PO SCH (20:53)
[2016-07-15 01:56] VITALS: BP 126/58
[2016-07-15] MEDS ORDERED: CATHFLO-ALTEPLASE 2 MG/2 ML CATHFLUSH ONE ×3 (04:00→06:30)
[2016-07-15] MEDS: METOPROLOL TARTRATE 25 MG TABLET PO SCH (05:24)
[2016-07-15] MEDS: THYROID 30 MG TABLET PO SCH (05:25)
[2016-07-15 06:15] LABS: ASPARTATE AMINO TRANSFERASE 14 U/L (15-37); BLOOD UREA NITROGEN 10 mg/dL (7-18)
[2016-07-15] MEDS: HEPARIN 5,000 UNITS/ML, 1ML SQ SCH ×2 (06:40→13:58)
[2016-07-15 06:46] VITALS: BP 105/56
[2016-07-15] MEDS: ALBUTEROL/IPRATROPIUM 2.5MG/0.5MG, 3 ML NPPB SCH ×3 (07:20→14:40)
[2016-07-15] MEDS: MAGNESIUM OXIDE 400 MG TABLET PO SCH (08:30)
[2016-07-15] MEDS: CALCIUM CARBONATE 500 MG TABLET PO SCH (08:30)
[2016-07-15] MEDS: SENNA/DOCUSATE TABLET PO SCH (08:30)
[2016-07-15] MEDS: GUAIFENESIN ER 600 MG TABLET PO SCH (08:30)
[2016-07-15] MEDS: CALCIUM CARBONATE 500 MG TAB.CHEW PO PRN (08:30)
[2016-07-15] MEDS: LACTOBACILLUS CHEW TABLET PO SCH (08:30)
[2016-07-15] MEDS: DIGOXIN 0.125 MG TABLET PO SCH (08:30)
[2016-07-15] MEDS: FLUTICASONE NASAL SPRAY 16GM NAS SCH (08:31)
[2016-07-15] MEDS: FLUTICASONE/VILANTEROL 200-25MCG/INH INH SCH (08:31)
[2016-07-15] MEDS: MEGESTROL ORAL.SUSP 40 MG/ML PO SCH (08:31)
[2016-07-15] MEDS ORDERED: FENTANYL PF 100 MCG/2ML IVPush PRN (09:00)
[2016-07-15] MEDS: GABAPENTIN 300 MG CAPSULE PO PRN (10:13)
[2016-07-15 14:11] VITALS: BP 118/58
[2016-07-15 16:18] VITALS: BP 99/49
== END 2016-07-15 16:47 | DRG 853 ==
LOC: ED 11:24 → EDIP 12:37 → 3NW 14:27 → CCU 07-02 19:55 → 4NOR 07-05 13:46
PROVIDERS: ATTEND Internal Medicine
PROC: 0W9930Z Drainage of Right Pleural Cavity with Drainage Device, Percutaneous Approach (ICD-10-PCS; principal; 2016-07-02)
PROC: 05H533Z Insertion of Infusion Device into Right Subclavian Vein, Percutaneous Approach (ICD-10-PCS; 2016-07-04)
PROC: B546ZZA Ultrasonography of Right Subclavian Vein, Guidance (ICD-10-PCS; 2016-07-04)
PROC: 0BBN4ZX Excision of Right Pleura, Percutaneous Endoscopic Approach, Diagnostic (ICD-10-PCS; 2016-07-09)
PROC: 3E0L3GC Introduction of Other Therapeutic Substance into Pleural Cavity, Percutaneous Approach (ICD-10-PCS; 2016-07-09)
DX: A41.9 Sepsis, unspecified organism (principal); J18.9 Pneumonia, unspecified organism; E43 Unspecified severe protein-calorie malnutrition; I50.33 Acute on chronic diastolic (congestive) heart failure; J86.0 Pyothorax with fistula; J93.0 Spontaneous tension pneumothorax; J96.21 Acute and chronic respiratory failure with hypoxia; J44.1 Chronic obstructive pulmonary disease with (acute) exacerbation; R64 Cachexia; J44.0 Chronic obstructive pulmonary disease with (acute) lower respiratory infection; K56.7 Ileus, unspecified; Z68.1 Body mass index [BMI] 19.9 or less, adult; D02.20 Carcinoma in situ of unspecified bronchus and lung; D63.8 Anemia in other chronic diseases classified elsewhere; E03.9 Hypothyroidism, unspecified; E78.5 Hyperlipidemia, unspecified; E87.6 Hypokalemia; F41.1 Generalized anxiety disorder; F17.200 Nicotine dependence, unspecified, uncomplicated; G47.33 Obstructive sleep apnea (adult) (pediatric); I08.1 Rheumatic disorders of both mitral and tricuspid valves; I11.0 Hypertensive heart disease with heart failure; I27.2 Other secondary pulmonary hypertension; I48.91 Unspecified atrial fibrillation; I65.23 Occlusion and stenosis of bilateral carotid arteries; I71.4 Abdominal aortic aneurysm, without rupture; I73.9 Peripheral vascular disease, unspecified; R31.29 Other microscopic hematuria; Z66 Do not resuscitate; Z82.49 Family history of ischemic heart disease and other diseases of the circulatory system; Z85.118 Personal history of other malignant neoplasm of bronchus and lung; Z86.79 Personal history of other diseases of the circulatory system; Z87.442 Personal history of urinary calculi; Z99.81 Dependence on supplemental oxygen; Z88.8 Allergy status to other drugs, medicaments and biological substances
CPT/HCPCS: 36415; 36569; 36600; 71010; 71020; 74000; 76937; 77001; 80048; 80053; 80061; 80202; 81001; 82040; 82150; 82306; 82607; 82728; 82803; 83036; 83540; 83550; 83605; 83690; 83735; 83880; 84100; 84145; 84439; 84443; 84466; 84484; 85025; 85610; 85730; 87040; 87070; 87081; 87205; 88307; 88309; 93005; 93306; 94640; 96365; 96367; C1729; J0456; J0690; J0696; J1100; J1644; J2185; J2250; J2405; J2543; J2704; J2710; J2997; J3010; J3370; J3490; J7620; J7644; P9047; C1751; J0360; J1200; J1450; J1940; J2060; J2270; J2765; J2930; J7030; J7050; Q0177